=== PATIENT | male | born 1955 | race Caucasian/White ===

== ENCOUNTER 2023-11-04 10:47 | Outpatient (REF) | payer BC, SELFPAY ==
[2023-11-04 14:44] LABS: HCT 43.7 % (40.0-50.0); HGB 14.8 g/dL (13.5-17.5); MCH 29.3 pg (27.0-33.0); MCHC 33.9 % (32.0-36.0); MCV 87 fL (80-95); MPV 10.3 fL (8.0-11.0); Platelet Count 213 10^3/uL (130-400); RBC 5.05 10^6/uL (4.36-5.78); RDW 12.2 % (11.8-14.1); RDW-SD 38.5 fL; WBC 15.61 10^3/uL (4.4-10.8)
[2023-11-04 14:59] LABS: ALT 29 U/L (16-63); AST 18 U/L (15-37); Albumin 3.5 g/dL (3.4-5.0); Alkaline Phosphatase 105 U/L (46-116); Anion Gap 9.7 mmol/L (3-11); BUN 16 mg/dL (7-18); Bilirubin, Total 1.1 mg/dL (0.2-1.0); C-Reactive Protein 9.56 mg/dL (<or=0.5); CO2 28.3 mmol/L (21.0-32.0); CREATININE 0.9 mg/dL (0.70-1.30); Calcium 9.3 mg/dL (8.5-10.1); Chloride 104 mmol/L (98-107); Estimated GFR 93.61 (mL/min/1.73m2); Glucose 116 mg/dL (74-106); Lipase 92 U/L (16-77); Potassium 4.1 mmol/L (3.5-5.1); Sodium 142 mmol/L (136-145); Total Protein 6.9 g/dL (6.4-8.2)
[2023-11-04 17:42] LABS: Abs Immature Grans 0.05 10^3/uL (0.0-0.06); Absolute Basophil Count 0.04 10^3/uL (0.0-0.2); Absolute Eosinophil Count 0.04 10^3/uL (0.0-0.7); Absolute Lymphocyte Count 0.94 10^3/uL (1.2-3.4); Absolute Monocyte Count 1.37 10^3/uL (0.1-0.8); Basophils % 0.3; Eosinophils % 0.3; Immature Grans % 0.3; Lymphocytes % 5.9; Monocytes % 8.6; Neutrophils % 84.6
== END 2023-11-04 10:48 | disposition home or self-care (01) ==
LOC: LBN 10:47
PROVIDERS: PCP Nurse Practitioner; Visit Provider Nurse Practitioner Family
DX: R10.9 Unspecified abdominal pain (principal); R79.89 Other specified abnormal findings of blood chemistry; R79.82 Elevated C-reactive protein (CRP)
CPT/HCPCS: 80053; 83690; 85027; 85025; 86140

== ENCOUNTER → 2025-06-25 09:54 | Outpatient (CLI) | payer BC, SELFPAY | LOC: DI 10:00 | PROVIDERS: PCP Nurse Practitioner; Visit Provider Nurse Practitioner Family | DX: R05.9 Cough, unspecified (principal) | CPT/HCPCS: 71046 ==